=== PATIENT | male | born 1995 | race American Indian/Alaskan Native ===

== ENCOUNTER 2021-07-16 02:16 | Emergency (ER) | payer SELFPAY ==
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
[2021-07-16] MEDS ORDERED: ONDANSETRON 4 MG ODT TAB PO ONE (02:37)
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
[2021-07-16 05:01] VITALS: BP 126/75
[2021-07-16] MEDS ORDERED: KETOROLAC 30 MG/1 ML INJ IM ONE (05:15)
== END 2021-07-16 05:27 ==
LOC: ED 02:16 → EEVIPCON 02:16 → ED 05:27
DX: S02.31XA Fracture of orbital floor, right side, initial encounter for closed fracture (principal); S05.12XA Contusion of eyeball and orbital tissues, left eye, initial encounter; V87.7XXA Person injured in collision between other specified motor vehicles (traffic), initial encounter; Z02.89 Encounter for other administrative examinations; Y93.89 Activity, other specified; Y92.89 Other specified places as the place of occurrence of the external cause; Y99.8 Other external cause status
CPT/HCPCS: 70450; 70486; 96372; 99285; J1885; J3490; Q0162